=== PATIENT | female | born 1950 | race African-American/Black ===

== ENCOUNTER → 2024-09-20 | Outpatient (CLI) | payer MEDICARE ==
--- NOTE | 2024-09-20 14:23 | HMCIMG ---
MR SPINAL CANAL, LUMBAR WO CON REASON: RADICULOPATHY LUMBAR COMPARISON: None TECHNIQUE: Routine lumbar imaging protocol was performed. FINDINGS: There is marked interspace narrowing at multiple levels most pronounced at L5-S1. Vertebral body alignment is normal. There are no focal osseous lesions. Axial images show ligamentum flavum and facet hypertrophic changes. There is mild spinal stenosis at L4-5, AP diameter between 7 and 8 mm. Remaining interspaces appear preserved. There are no focal disc herniations. Surrounding soft tissues appear normal. Neural foramina are preserved. IMPRESSION: 1. Marked degenerative disc disease at multiple levels. 2. Mild spinal stenosis at L4-5 on a degenerative basis.
== END | disposition home or self-care (01) ==
LOC: RAH 12:39
PROVIDERS: ATTEND Student in an Organized Health Care Education/Training Program
DX: M48.061 Spinal stenosis, lumbar region without neurogenic claudication (principal); M51.16 Intervertebral disc disorders with radiculopathy, lumbar region; M47.896 Other spondylosis, lumbar region
CPT/HCPCS: 72148